=== PATIENT | male | born 1990 | race Caucasian/White ===

== ENCOUNTER 2017-04-08 17:30 | Emergency (ER) | payer OTHER ==
[~2017-04-08] VITALS: Ht 175.3 cm; Wt 153.3 kg
[~2017-04-08 17:30] MED LIST: AMLO10TA PO; HYDR25TA32 PO; LISI40TA4 PO
[2017-04-08 17:51] VITALS: BP 162/109
--- NOTE | 2017-04-08 18:24 | NUR ---
PT TAKEN TO BED 10.
--- NOTE | 2017-04-08 18:25 | NUR ---
26/M BIB FRIEND C/O RECTAL PAIN PAIN AND BLOOD IN STOOL X2 WEEKS.HX HTN. PT STATES NO BLOODY JULISSA TODAY BUT BURNING PAIN TO RACTUM . DENIES N/V/D; SKIN IS PINK/WARM/DRY; AAOX4 WITH EVEN AND STEADY GAIT; LUNGS CLEAR BL; PT DENIES ANY FEVER, CP, SOB, OR COUGH AT THIS TIME; PATIENT STATES PAIN OF 9/10 AT THIS TIME; PATIENT POSITIONED FOR COMFORT. ER MD MADE AWARE OF PT STATUS.
--- NOTE | 2017-04-08 18:57 | NUR ---
Patient being evaluated by DR FISHER at bedside.
--- NOTE | 2017-04-08 19:17 | NUR ---
Pt report given to KAYLEE HAMM. Transfer of care at this time.
--- NOTE | 2017-04-08 19:18 | NUR ---
OBTAINED REPORT FROM AM SHIFT RN, PT IS AAOX4, VSS, PAIN TO RECTAL AREA, PRONE POSITION IN BED AT THIS TIME, SETTING UP FOR PROCEDURE.
[2017-04-08] MEDS: LIDOCAINE/EPI 2% 1:100000 20 ML VIAL INJ ONE (20:00)
[2017-04-08] MEDS: NEOMYCIN/POLYMYXIN/BACITRACIN 0.9 GM/1 PKT TP ONE (20:00)
--- NOTE | 2017-04-08 20:00 | NUR ---
PROCEDURE DONE BY DR. FISHER. EMT ASSISTED AT BEDSIDE.
[2017-04-08 20:15] VITALS: BP 153/111
--- NOTE | 2017-04-08 20:15 | NUR ---
Patient discharged with v/s stable. Written and verbal after care instructions given and explained BY DR. FISHER. Patient alert, oriented and verbalized understanding of instructions. Ambulatory with steady gait. All questions addressed prior to discharge. ID band removed. Patient advised to follow up with PMD. Rx of FLAGYL AND NAPROSYN given. Patient educated on indication of medication including possible reaction and side effects. Opportunity to ask questions provided and answered.
== END 2017-04-08 20:15 | disposition home or self-care (01) ==
LOC: MED 17:30
DX: K61.1 Rectal abscess (principal); I10 Essential (primary) hypertension; Z79.899 Other long term (current) drug therapy
CPT/HCPCS: 10060; 99283; J2001

== ENCOUNTER 2018-08-13 12:22 | Emergency (ER) | payer OTHER ==
[~2018-08-13] VITALS: Ht 177.8 cm; Wt 145.1 kg
[2018-08-13 12:30] VITALS: BP 182/98
--- NOTE | 2018-08-13 12:54 | NUR ---
27 Y MALE BIB FAMILY C/O L FACIAL SWOLLEN AND NUMBNESS OF TOUGUE THIS MORNING. DENIES PAIN, N/V/D. DENIES BLURRY VISION, DIFFICULTY SWALLING OR BREATHING. 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 DIFFICULTY CLOSING L EYE DUE TO SWELLING. PUPILS ELLI. GCS 15. A00X4. BP 182/98. BED IS DOWN, LOCKED, BED RAIL X 1, ERMD TO SEE PT. PMH- HTN
--- NOTE | 2018-08-13 13:00 | NUR ---
DR YBARRA AT BEDSIDE
[2018-08-13 13:19] VITALS: BP 185/97
--- NOTE | 2018-08-13 13:19 | NUR ---
Patient discharged with v/s stable. Written and verbal after care instructions given and explained. Patient alert, oriented and verbalized understanding of instructions. Ambulatory with steady gait. All questions addressed prior to discharge. ID band removed. Patient advised to follow up with PMD. Rx of lisinopril, acyclovir, prednisone given. Patient educated on indication of medication including possible reaction and side effects. Opportunity to ask questions provided and answered.
--- NOTE | 2018-08-13 13:19 | NUR ---
pt discharged with high bp. instructed to take prescribed lisinopril to decrease bp.
== END 2018-08-13 13:19 | disposition home or self-care (01) ==
LOC: MED 12:22
DX: G51.0 Bell's palsy (principal); I10 Essential (primary) hypertension; Z79.899 Other long term (current) drug therapy
CPT/HCPCS: 99281; 99283

== ENCOUNTER 2021-01-25 10:49 | Inpatient (IN) | payer OTHER, SELFPAY ==
[~2021-01-25] VITALS: Ht 175.3 cm; Wt 135.2 kg
[~2021-01-25 10:49] MED LIST changes: -LISI40TA4 PO; +LISI40TA8 PO
[2021-01-25 11:05] VITALS: BP 127/61
--- NOTE | 2021-01-25 11:10 | NUR ---
PT RETURNED TO LOBBY AT THIS TIME.
--- NOTE | 2021-01-25 11:44 | NUR ---
JUDI PRADHAN AT BEDSIDE EVALUATING PT
--- NOTE | 2021-01-25 11:44 | NUR ---
PT AMBULATED TO ER BED 3
[2021-01-25] MEDS ORDERED: KETOROLAC 30 MG/ML VIAL IVP ONE (11:50)
[2021-01-25] MEDS ORDERED: NACL 0.9% 1,000 ML IV ONE ×2 (11:50→14:00)
--- NOTE | 2021-01-25 12:00 | NUR ---
PT C/O HEADACHE AND DIARRHEA SINCE THIS AM. BS CHECKED READ "HIGH" PA MADE AWARE
[2021-01-25 12:24] LABS: BASOPHILS # (AUTO) 0.1 K/uL (0.00-0.22); BASOPHILS % (AUTO) 0.4 % (0.0-2.0); EOSINOPHILS % (AUTO) 0.1 % (0.0-4.0); HEMATOCRIT 51.2 % (36-52); HEMOGLOBIN 17.2 g/dL (12.0-18.0); LYMPHOCYTES # (AUTO) 1.5 K/uL (2.0-11.5); LYMPHOCYTES % (AUTO) 6.3 % (20.5-51.1); MEAN CORPUSCULAR HEMOGLOBIN 30 pg (27-31); MEAN CORPUSCULAR HGB CONC 34 g/dL (33-37); MEAN CORPUSCULAR VOLUME 88.1 fL (80-94); MONOCYTES # (AUTO) 1.1 K/uL (0.8-1.0); MONOCYTES % (AUTO) 4.8 % (1.7-9.3); NEUTROPHILS % (AUTO) 88.4 % (42.2-75.2); PLATELET COUNT (AUTO) 340 K/uL (140-450); RED BLOOD CELL COUNT(AUTO) 5.81 MIL/uL (4.20-6.10); RED CELL DISTRIBUTION WIDTH 13.1 % (11.6-13.7); WHITE BLOOD COUNT (AUTO) 23.7 K/uL (4.8-10.8)
--- NOTE | 2021-01-25 12:27 | NUR ---
IV INSERTED TO RIGHT WRIST #18GUAGE, BLOOD DRAWN AND SENT TO LAB. IV INFUSING PER ORDER.
[2021-01-25 12:59] LABS: ANION GAP 19.8 (8-16); CREATININE 2.6 mg/dL (0.6-1.3); POTASSIUM 5.8 mmol/L (3.5-5.1); TOTAL BILIRUBIN 0.8 mg/dL (0.0-1.0)
[2021-01-25] MEDS ORDERED: INSULIN REGULAR, HUMAN 100 UNIT/ML VIAL IVP ONE (13:25)
[2021-01-25] MEDS ORDERED: ACETAMINOPHEN 325 MG TAB PO PRN (14:55)
[2021-01-25] MEDS ORDERED: ONDANSETRON 4 MG/2 ML VIAL IVP PRN (14:55)
[2021-01-25] MEDS ORDERED: KCL 20 MEQ/WATER INJ PREMIX 200 ML IV PRN (14:55)
[2021-01-25] MEDS ORDERED: POTASSIUM CHLORIDE 10 MEQ TABER PO PRN (14:55)
[2021-01-25] MEDS ORDERED: NACL 0.9% 1,000 ML IV SCH (14:55)
[2021-01-25] MEDS ORDERED: LORazepam 1 MG TAB PO PRN (14:55)
[2021-01-25] MEDS ORDERED: MAG SULF 2000 MG/WATER PREMIX 50 ML IV PRN (14:55)
[2021-01-25] MEDS ORDERED: ZOLPIDEM 5 MG TAB PO PRN (14:55)
[2021-01-25] MEDS ORDERED: HYDROcodone/APAP 5/325 MG 1 TAB TAB PO PRN (14:55)
[2021-01-25] MEDS ORDERED: MAGNESIUM OXIDE 400 MG TAB PO PRN (14:55)
[2021-01-25] MEDS ORDERED: DEXTROSE 50% 50 ML SYR IVP PRN (15:00)
[2021-01-25] MEDS: INSULIN LANTUS 100 UNITS/ML 10 ML VIAL SUBQ SCH (15:20)
[2021-01-25] MEDS: BLOOD GLUCOSE MONITORING 1 DEV DEV FS SCH ×2 (16:55→21:00)
[2021-01-25] MEDS: INSULIN LISPRO SLIDING SCALE 100 UNITS/ML VIAL SUBQ PRN ×2 (17:02→22:21)
[2021-01-25] MEDS ORDERED: METF-430 PO (19:06)
--- NOTE | 2021-01-25 19:12 | NUR ---
REPORT RECEIVED FROM KAYLEE WILDER FOR CONTINUITY OF PT CARE AT THIS TIME.
--- NOTE | 2021-01-25 19:24 | NUR ---
PT LAYING IN BED LOCKED IN LOWEST POSITION W X1 SIDERAIL UP, HOB SLIGHTLY ELEVATED.PT REPORTS HE IS FEELING BETTER, HEADACHE IMPROVEMENT TO 6/10 DENIES ANY DIZZINESS, NAUSEA, OR OTHER SYMPTOMS. PT IS TACHY AT 98HR BUT OTHERWISE VSS. BREATHING EVEN AND UNLABORED. NAD NOTED, WILL CONTINUE TO MONITOR. PMH:DIABETED, HTN NKA
--- NOTE | 2021-01-25 19:24 | NUR ---
30 YO/M BIB SELF W C/O PRESSURE STONER NOW AT 6/10 BEGGINGIN AT 0700 THIS MORNING, NON RAD, + X1 EPISODE OF WATERY BOWEL MOVEMENT AT 0100 THIS MORNING RELATES IT TO EATING SPICY FOOD THE NIGHT BEFORE. PT DENIES ANY BLURRY VISION, N/V, BLOOD IN STOOL, ABD PAIN OR OTHER SYMPTOMS. PER PT PAIN IS IMPROVING AT THIS TIME. PMH:HTN, DIABETES NKA
--- NOTE | 2021-01-25 19:57 | NUR ---
Pt report given to KAYLEE SINGH. Transfer of care at this time.
--- NOTE | 2021-01-25 20:18 | NUR ---
Patient will be admitted to care of DR. GALINDO. Admited to TELEMETRY. Will go to [id number]. Belongings list completed. Report to KAYLEE SINGH.
--- NOTE | 2021-01-25 21:00 | NUR ---
BLOOD SUGAR CHECKED -292. HUMALOG SLIDING SCALE COVERAGE ADMINISTERED. PATIENT IS ASYMPTOMATIC.
[2021-01-25 21:30] VITALS: BP 118/65
--- NOTE | 2021-01-25 21:30 | NUR ---
Admitted from ER TO TELEMETRY UNIT , with chief complaint of SEVERE HEADACHE, AWAKE, A/OX4. 30 years old, Male, Cooperative. RESPIRATION EVEN AND UNLABORED. LUNGS CLEAR ON BILATERAL AUSCULTATION. ABDOMEN SOFT, NON-TENDER WITH POSITIVE BOWEL SOUNDS ON ALL QUADRANTS. BLOOD SUGAR IN ER WAS 461, WAS MEDICATED WITH LANTUS AND HUMALOG. WILL CONTINUE TO MONITOR BLOOD SUGAR. PATIENT IS INDEPENDENT, AMBULATORY TO THE BR. HEAD TO TOE ASSESSMENT DONE WITH CHARGE NURSE TUNDE. SKIN IS INTACT. DENIES PAIN 0/10. SINUS RHYTHM ON TELE MONITORING. oriented to call light, bed, phone,television, bathroom, smoking policy,visiting hours, procedures, ID bracelet on. Belongings list checked.
[2021-01-26] VITALS: BP_SYST 116; BP_SYST 64; BP_DIAS 100; BP_DIAS 60
--- NOTE | 2021-01-26 01:06 | NUR ---
Patient's Plan of Care was discussed and reviewed with FIRE TENDER: ELIEZER SINGH
--- NOTE | 2021-01-26 02:00 | NUR ---
SLEEPING COMFORTABLY IN BED,. RESPIRATION EVEN AND UNLABORED. CALL LIGHT IN REACH.
[2021-01-26 04:00] VITALS: BP 120/65
--- NOTE | 2021-01-26 04:15 | NUR ---
SR/ST ON TELE MONITORING, AT TIMES WITH FREQUENT PVCs. PATIENT IS ASYMPTOMATIC.
[2021-01-26 06:15] LABS: BASOPHILS # (AUTO) 0.1 K/uL (0.00-0.22); BASOPHILS % (AUTO) 0.6 % (0.0-2.0); EOSINOPHILS # (AUTO) 0.5 K/uL (0-0.4); EOSINOPHILS % (AUTO) 2.7 % (0.0-4.0); HEMATOCRIT 45.1 % (36-52); HEMOGLOBIN 15.4 g/dL (12.0-18.0); LYMPHOCYTES # (AUTO) 2.4 K/uL (2.0-11.5); LYMPHOCYTES % (AUTO) 12.5 % (20.5-51.1); MEAN CORPUSCULAR HEMOGLOBIN 30 pg (27-31); MEAN CORPUSCULAR HGB CONC 34 g/dL (33-37); MEAN CORPUSCULAR VOLUME 87.3 fL (80-94); MONOCYTES # (AUTO) 0.9 K/uL (0.8-1.0); MONOCYTES % (AUTO) 4.6 % (1.7-9.3); NEUTROPHILS % (AUTO) 79.6 % (42.2-75.2); PLATELET COUNT (AUTO) 258 K/uL (140-450); RED BLOOD CELL COUNT(AUTO) 5.17 MIL/uL (4.20-6.10); RED CELL DISTRIBUTION WIDTH 13.1 % (11.6-13.7); WHITE BLOOD COUNT (AUTO) 18.9 K/uL (4.8-10.8)
[2021-01-26] MEDS ORDERED: INSULIN LISPRO 100 UNITS/ML VIAL SUBQ ONE (07:10)
[2021-01-26] MEDS: BLOOD GLUCOSE MONITORING 1 DEV DEV FS SCH ×4 (07:12→21:03)
[2021-01-26 07:15] LABS: ANION GAP 17.1 (8-16); CHOL/HDL RATIO 6.2 (1-4.5); CREATININE 2.1 mg/dL (0.6-1.3); MAGNESIUM 1.6 mg/dL (1.8-2.4); PHOSPHORUS 4.5 mg/dL (2.5-4.9); POTASSIUM 5.1 mmol/L (3.5-5.1); TOTAL BILIRUBIN 0.8 mg/dL (0.0-1.0)
--- NOTE | 2021-01-26 07:21 | NUR ---
ADMINISTERED 21 UNITS HUMALOG SUB-Q X 1 DOSE PER MD ORDER FOR BS 422. PATIENT IS ASYMPTOMATIC. CONDITION REMAIN STABLE. ENDORSED TO AM SHIFT NURSE FOR CONTINUITY OF CARE.
--- NOTE | 2021-01-26 07:40 | NUR ---
RECEIVED REPORT FROM SCREW MACHINE OPERATOR SINGLE SPINDLE NURSE FOR CONTINUITY OF CARE, POC DISCUSSED. PT IS ASLEEP ON LEFT SIDE WITH CHEST RISING AND FALLING EVEN AND UNLABORED. SCREW MACHINE OPERATOR SINGLE SPINDLE REPORTED BLOOD GLUCOSE OF 422, MADE AWARE. INSULIN COVERAGE WAS PROVIDED BY SCREW MACHINE OPERATOR SINGLE SPINDLE NURSE. PT HAS A RIGHT WRIST 18G SALINE LOCK. ALL SAFETY MEASURES IN PLACE, CALL LIGHT WITHIN REACH. WILL CONTINUE TO MONITOR.
[2021-01-26 08:00] VITALS: BP 126/73
--- NOTE | 2021-01-26 08:19 | NUR ---
PATIENT HAS BEEN SCREENED AND CATEGORIZED MODERATE NUTRITION RISK. PATIENT WILL BE SEEN WITHIN 3-5 DAYS OF ADMISSION. 01/26/21 01/30/[address]
[2021-01-26] MEDS: ENOXAPARIN 40 MG/0.4 ML SYR SUBQ SCH (08:36)
[2021-01-26] MEDS: INSULIN LANTUS 100 UNITS/ML 10 ML VIAL SUBQ SCH (08:38)
[2021-01-26] MEDS: amLODIPine 5 MG TAB PO SCH (08:39)
[2021-01-26] MEDS: DOCUSATE SODIUM 100 MG GELCAP PO SCH (08:40)
--- NOTE | 2021-01-26 08:48 | NUR ---
CHERYL MEDICATION ADMINISTERED PER MD ORDER, PT TOLERATED ADMINISTRATION. PT EDUCATION PROVIDED AND PT NODDED IN UNDERSTANDING. BREAKFAST AT BEDSIDE. ALL NEEDS HAVE BEEN REPORTED TO BE MET. ALL SAFETY MEASURES IN PLACE, CALL LIGHT WITHIN REACH. WILL CONTINUE TO MONITOR.
[2021-01-26] MEDS: INSULIN LISPRO SLIDING SCALE 100 UNITS/ML VIAL SUBQ PRN ×3 (11:52→21:05)
--- NOTE | 2021-01-26 11:55 | NUR ---
PT BLOOD GLUCOSE OF 397, 10 UNITS OF INSULIN ADMINISTERED PER MD ORDER. PT TOLERATED ADMINISTRATION.
[2021-01-26 12:00] VITALS: BP 129/83
--- NOTE | 2021-01-26 13:01 | NUR ---
PRN MAGNESIUM ADMINISTERED FOR MAG LEVEL OF 1.6
--- NOTE | 2021-01-26 15:04 | NUR ---
CALLED [facility] FOR [employer] [facility] FOR PT, STATED THEY WILL COME TOMORROW 01/27/21 BEFORE NOON FOR EDUCATION.
[2021-01-26] MEDS: NACL 0.9% 1,000 ML IV SCH (15:31)
--- NOTE | 2021-01-26 15:48 | NUR ---
RENAL ULTRASOUND HAS BEEN TAKEN.
[2021-01-26 16:00] VITALS: BP 123/81
[2021-01-26] MEDS: INSULIN LISPRO 100 UNITS/ML VIAL SUBQ SCH (16:39)
--- NOTE | 2021-01-26 17:00 | NUR ---
BLOOD GLUCOSE OF 316; 8 UNITS PER SLIDING SCALE ADMINISTERED AND 5 UNITS PER MD ORDER ADMINISTERED. PT TOLERATED ADMINISTRATION. PT HAS BEEN EDUCATED ON DIABETES AND S/S TO MONITOR FOR. EDUCATED ON SEVERITY OF UNCONTROLLED BLOOD GLUCOSE. PT VERBALIZED UNDERSTANDING BUT REINFORCEMENT NEEDED. IV FLUIDS HAVE BEEN STARTED, IV IS PATENT AND INTACT. ALL SAFETY MEASURES IN PLACE, CALL LIGHT WITHIN REACH. WILL CONTINUE TO MONITOR.
--- NOTE | 2021-01-26 18:04 | NUR ---
PT IS STABLE IN BED WITH NO ACUTE S/S OF DISTRESS. ALL SAFETY MEASURES IN PLACE, CALL LIGHT WITHIN REACH. WILL CONTINUE TO MONITOR.
--- NOTE | 2021-01-26 18:50 | NUR ---
PT IS STABLE AND ALL NEEDS HAVE BEEN MET THROUGHOUT SHIFT. PT WILL BE ENDORSED TO KOSHER DIETARY SERVICE MANAGER NURSE.
--- NOTE | 2021-01-26 19:15 | NUR ---
RECD. RESPORT FROM AM NURSE. PATIENT RESTING IN BED, AWAKE, A/OX4. OBESE. RESPIRATION EVEN AND UNLABORED. IV OF NS INFUSING AT 80 ML/HR, LEFT WRIST G18. ABLE TO AMBULATE BY HIMSELF TO THE BR. MEDICATIONS FOR THE NIGHT DISCUSSED WITH PATIENT. VERBALIZED UNDERSTANDING. DENIES PAIN 0/10.
[2021-01-26 20:00] VITALS: BP 133/77
--- NOTE | 2021-01-26 20:00 | NUR ---
Patient's Plan of Care was discussed and reviewed with ELECTRICAL UNIT REBUILDER: SAMANTHA MARTINS
--- NOTE | 2021-01-26 21:03 | NUR ---
BLOOD SUGAR CHECKED - 339, HUMALOG SLIDING SCALE COVERED ADMINISTERED PER MD ORDER. SNACK GIVEN FOR THE NIGHT. DIABETIC HEALTH TEACHINGS GIVEN ON THE IMPORTANCE OF DIET AND EXERCISE TO CONTROL DM. JUST NODS IN AGREEMENT.
--- NOTE | 2021-01-26 23:00 | NUR ---
COMPLAINT OF PAIN IN THE IV SITE. CHECKED IV SITE, STILL FLUSHING WELL.
[2021-01-27] VITALS: BP 127/72
--- NOTE | 2021-01-27 01:30 | NUR ---
RESTING IN BED COMFORTABLY SLEEPING. RESPIRATION EVEN AND UNLABORED. CALL LIGHT IN REACH.
--- NOTE | 2021-01-27 03:30 | NUR ---
IV INFILTRATED, WILL INSERT NEW IV LINE.
[2021-01-27] MEDS: NACL 0.9% 1,000 ML IV SCH ×2 (03:35→13:10)
[2021-01-27 04:00] VITALS: BP 111/64
--- NOTE | 2021-01-27 05:30 | NUR ---
NEW IV LINE INSERTED BY KAYLEE SETHI AT THE LEFT HAND G20.
[2021-01-27 06:21] LABS: BASOPHILS # (AUTO) 0.1 K/uL (0.00-0.22); BASOPHILS % (AUTO) 0.7 % (0.0-2.0); EOSINOPHILS # (AUTO) 0.5 K/uL (0-0.4); HEMATOCRIT 45.7 % (36-52); HEMOGLOBIN 15.7 g/dL (12.0-18.0); LYMPHOCYTES # (AUTO) 2.8 K/uL (2.0-11.5); LYMPHOCYTES % (AUTO) 22.3 % (20.5-51.1); MEAN CORPUSCULAR HEMOGLOBIN 30 pg (27-31); MEAN CORPUSCULAR HGB CONC 34 g/dL (33-37); MONOCYTES # (AUTO) 0.9 K/uL (0.8-1.0); MONOCYTES % (AUTO) 7.3 % (1.7-9.3); NEUTROPHILS # (AUTO) 8.4 K/uL (1.8-7.7); NEUTROPHILS % (AUTO) 65.7 % (42.2-75.2); PLATELET COUNT (AUTO) 244 K/uL (140-450); RED BLOOD CELL COUNT(AUTO) 5.25 MIL/uL (4.20-6.10); RED CELL DISTRIBUTION WIDTH 13.1 % (11.6-13.7); WHITE BLOOD COUNT (AUTO) 12.7 K/uL (4.8-10.8)
[2021-01-27 06:35] LABS: ANION GAP 11.9 (8-16); CARBON DIOXIDE 24.2 mmol/L (21-32); CREATININE 1.6 mg/dL (0.6-1.3); MAGNESIUM 1.8 mg/dL (1.8-2.4); PHOSPHORUS 3.9 mg/dL (2.5-4.9); POTASSIUM 4.1 mmol/L (3.5-5.1); TOTAL BILIRUBIN 0.7 mg/dL (0.0-1.0)
[2021-01-27] MEDS: INSULIN LISPRO 100 UNITS/ML VIAL SUBQ SCH ×2 (07:07→12:01)
[2021-01-27] MEDS: INSULIN LISPRO SLIDING SCALE 100 UNITS/ML VIAL SUBQ PRN ×2 (07:08→12:01)
--- NOTE | 2021-01-27 07:20 | NUR ---
CONDITION REMAIN STABLE. ENDORSED TO AM SHIFT NURSE FOR CONTINUITY OF CARE.
--- NOTE | 2021-01-27 07:33 | NUR ---
RECEIVED BEDSIDE REPORT FROM FIELD CONSULTANT RN. PATIENT RESTING IN BED EYES CLOSED.
[2021-01-27] MEDS: BLOOD GLUCOSE MONITORING 1 DEV DEV FS SCH ×2 (07:46→12:00)
[2021-01-27 08:00] VITALS: BP 114/82
[2021-01-27] MEDS: amLODIPine 5 MG TAB PO SCH (08:33)
[2021-01-27] MEDS: DOCUSATE SODIUM 100 MG GELCAP PO SCH (08:33)
[2021-01-27] MEDS: ENOXAPARIN 40 MG/0.4 ML SYR SUBQ SCH (08:35)
[2021-01-27] MEDS: INSULIN LANTUS 100 UNITS/ML 10 ML VIAL SUBQ SCH (08:36)
--- NOTE | 2021-01-27 08:47 | NUR ---
MEDICATIONS GIVEN PER MD ORDER. PT EDUCATED AND VERBALIZED UNDERSTANDING , PT ASSISTED WITH MEAL TRAY SET UP . PT ASSESSED NON PITTING ON BOTH LEGS, SI S2 PRESENT LUNGS CLEAR BOWEL SOUNDS PRESENT NON TENDER DISTENDED ABDOMEN NEURO UNREMARKABLE. ALL SAFETY MEASURES UN PLACE. CALL LIGHT WITHIN REACH ALL PERSONAL BELONGIGNS WITHIN REACH , NON SLIP SOCKS ON
--- NOTE | 2021-01-27 11:07 | NUR ---
PATIENT AMBULATED TO RESTROOM TOLERATED WELL DENIES SHORTNESS OF BREATH OR FATIGUE. ALL SAFETY MEASURES ARE IN PLACE.
[2021-01-27 12:00] VITALS: BP 129/72
--- NOTE | 2021-01-27 13:19 | NUR ---
PT REQUEST ICE WATER , ICE WATER PROVIDED. PTS IV BEEPING , PT EDUCATED ON TO AVOID KINKS . ALL SAFETY MEASURES IN PLACE
[2021-01-27] MEDS ORDERED: INSU100I7 SUBQ (14:45)
--- NOTE | 2021-01-27 15:02 | NUR ---
DC PLANNING NIKA CALLED PATIENT'S PCP OFFICE AT AND SPOKE TO RAKAN TO SCHEDULED A FOLLOW UP APPOINTMENT FOR PATIENT AFTER HIS DC FROM [facility]. RAKAN SCHEDULED PATIENT'S FOLLOW UP APPOINTMENT FOR Monday02/01/2021 AT 11:00AM WITH MD AMY PARRA. NIKA THANKED HER AND ENDED THE CALL. NIKA MET WITH PATIENT AT BEDSIDE AND PROVIDED HIM WITH HIS APPOINTMENT INFORMATION SCHEDULED FOR 02/01/2021. NIKA HANDED APPOINTMENT NOTE TO PATIENT WITH ADDRESS, DATE AND TIME OF APPOINTMENT. PATIENT WAS AWAKE AND ALERT AND THANKED THESE PRACTICE ASSISTANT FOR THE INFORMATION. Addendum: 01/27/21 at 1650 by Angela Scott CM NIKA CONTACTED [facility] VIA TELEPHONIC CALL TO SPOKE TO [facility] # [id number] ABOUT PATIENT'S NEED FOR REFERRAL TO ENDOCRINOLOGY. PER [facility] FORM FOUND ON [facility] PORT[facility] NEEDED TO BE COMPLETED AND FAX TO [facility]. NIKA PRINTED FORM, COMPLETED AND FAXED TO [facility]. WITH COMPLETED CONFIRMATION AT ABOUT 16:43.
--- NOTE | 2021-01-27 15:08 | NUR ---
DIABETES EDUCATION PERFORMED. PATIENT EDUCATED WITH APPLE. TEACH BACK METHOD PERFORMED. PATIENT STATES HE DOES THIS AT HOME ALREADY AND ALREADY HAS ENOUGH PRACTICE. pT WAS ABLE TO SIMULATE DRAWING 5 UNITS, 8 UNITS 15 UNITS AND INJECTING IT TO APPLE. PT ADVISED TO ROTATE SITE , USE ALCOHOL SWABS TO CLEAN SITE BEFORE SUB Q INJECTION . PT VERBALIZED UNDERSTANDING . PT STATED HE ALSO GIVES INSULIN TO HIS FATHER. WHO IS ALSO DIABETIC . 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 SISTER ON PHONE DURING EDUCATION AWARE TO STOP METFORMIN AND NAPROXEN ALL SAFETY MEASURES IN PLACE. PT
--- NOTE | 2021-01-27 16:31 | NUR ---
PATIENT DISCHARGE INSTRUCTIONS COMPLETE. PT EDUCATED ON OXYGEN USE, EDUCATED TO FLLLOW UP WITH PRIMARY CARE AND TAKE MEDICATION PRESCRIBED. PT EDUCATED ON DIABETES RISKS, MORBIDITY AND MORTALITY . PATIENT ADVISED TO LOSE WEIGHT EXERCISE 150 MIN / WEEK FOLLOW A [facility] DIET PLAN. PATIENT VERBALIZED UNDERSTANDING FOR CONTINUITY OF CARE. TELE MONITOR REMOVED AND RETURNED TO TELE, IV CANULA REMOVED, PATIENT GATHERED ALL BELONGINGS , ALL SAFETY MEASURES IN PLACE. PATIENT DENIES ANY QUESTIONS OR CONCERNS AT THIS TIME
== END 2021-01-27 17:32 | disposition home or self-care (01) | DRG 469 ==
LOC: MED 10:49 → MTU 14:55
PROVIDERS: ADMIT Hospitalist; ATTEND Hospitalist
DX: N17.0 Acute kidney failure with tubular necrosis (principal); E11.00 Type 2 diabetes mellitus with hyperosmolarity without nonketotic hyperglycemic-hyperosmolar coma (NKHHC); E87.2 Acidosis; E11.21 Type 2 diabetes mellitus with diabetic nephropathy; E11.65 Type 2 diabetes mellitus with hyperglycemia; E78.1 Pure hyperglyceridemia; E66.9 Obesity, unspecified; E78.5 Hyperlipidemia, unspecified; R51.9 Headache, unspecified; E86.9 Volume depletion, unspecified; E86.0 Dehydration; E87.5 Hyperkalemia; I10 Essential (primary) hypertension; Z20.822 Contact with and (suspected) exposure to COVID-19; T38.3X6A Underdosing of insulin and oral hypoglycemic [antidiabetic] drugs, initial encounter; Y92.89 Other specified places as the place of occurrence of the external cause; Z79.899 Other long term (current) drug therapy; Z71.6 Tobacco abuse counseling; Z68.41 Body mass index [BMI] 40.0-44.9, adult
CPT/HCPCS: 36415; 76770; 80053; 82948; 83036; 83735; 83930; 84100; 85025; 87081; 93005; 96361; 96374; 96375; 99291; J1650; J1815; J1885; Q0092

== ENCOUNTER 2023-03-26 10:44 | Emergency (ER) | payer OTHER ==
[~2023-03-26] VITALS: Ht 177.8 cm; Wt 138.3 kg
[~2023-03-26 10:44] MED LIST changes: +INSU100I7 SUBQ; +METF-430 PO
[2023-03-26 11:03] VITALS: BP 137/90; PULSE 106; RESP 17; TEMP 97.6; O2SAT 98
[2023-03-26 11:58] LABS: HEMATOCRIT 50.5 % (36-52); HEMOGLOBIN 17.3 g/dL (12.0-18.0); MEAN CORPUSCULAR HEMOGLOBIN 31 pg (27-31); MEAN CORPUSCULAR HGB CONC 34 g/dL (33-37); MEAN CORPUSCULAR VOLUME 89.9 fL (80-94); PLATELET COUNT (AUTO) 238 K/uL (140-450); RED BLOOD CELL COUNT(AUTO) 5.61 MIL/uL (4.20-6.10); RED CELL DISTRIBUTION WIDTH 12.7 % (11.6-13.7); WHITE BLOOD COUNT (AUTO) 17.8 K/uL (4.8-10.8)
[2023-03-26 12:11] LABS: CALCIUM 9.2 mg/dL (8.5-10.1); CARBON DIOXIDE 22.6 mmol/L (21-32); CREATININE 2.1 mg/dL (0.6-1.3); POTASSIUM 4.6 mmol/L (3.5-5.1)
[2023-03-26 12:15] LABS: BASOPHILS % (MANUAL) 0 % (0-2); EOSINOPHILS % (MANUAL) 0 % (0-4); LYMPHOCYTES % (MANUAL) 17 % (20-46); MONOCYTES % (MANUAL) 7 % (5-12); PLATELET ESTIMATE ADEQUATE
[2023-03-26] MEDS ORDERED: diphenhydrAMINE 50 MG/ML VIAL IVP ONE (12:25)
[2023-03-26] MEDS ORDERED: KETOROLAC 30 MG/ML VIAL IVP ONE (12:25)
[2023-03-26] MEDS ORDERED: METOCLOPRAMIDE 10 MG/2 ML INJ VIAL IVP ONE (12:25)
[2023-03-26] MEDS ORDERED: NACL 0.9% 1,000 ML IV ONE (12:25)
[2023-03-26] MEDS ORDERED: cefTRIAXone 1,000 MG VIAL ONE (12:56)
[2023-03-26 14:15] LABS: FLU A ANTIGEN negative (NEGATIVE); FLU B ANTIGEN NEGATIVE (NEGATIVE)
[2023-03-26] MEDS ORDERED: INSULIN REGULAR, HUMAN 100 UNIT/ML VIAL SUBQ ONE (14:35)
[2023-03-26] MEDS ORDERED: PROP1DRO21 OP (14:39)
[2023-03-26] MEDS ORDERED: MINE3.5O2 OP (14:39)
[2023-03-26] MEDS ORDERED: ACYC400T14 PO (14:39)
[2023-03-26] MEDS ORDERED: PRED20TA5 PO (14:39)
[2023-03-26 14:51] VITALS: BP 137/90; PULSE 78; RESP 17; TEMP 97.6; O2SAT 98
== END 2023-03-26 14:54 | disposition home or self-care (01) ==
LOC: MED 10:44
DX: G51.0 Bell's palsy (principal); Z20.822 Contact with and (suspected) exposure to COVID-19; E11.9 Type 2 diabetes mellitus without complications; I10 Essential (primary) hypertension; Z79.4 Long term (current) use of insulin; Z79.899 Other long term (current) drug therapy
CPT/HCPCS: 36415; 36600; 70450; 80048; 82803; 82948; 85025; 87426; 87804; 96361; 96365; 96372; 96375; 99285; J0696; J1200; J1815; J1885; J2765; J7030

== ENCOUNTER 2023-11-28 11:23 | Emergency (ER) | payer OTHER ==
[~2023-11-28] VITALS: Ht 177.8 cm; Wt 138.3 kg
[~2023-11-28 11:23] MED LIST changes: +ACYC400T14 PO; +MINE3.5O2 OP; +PRED20TA5 PO; +PROP1DRO21 OP
[2023-11-28 11:39] VITALS: BP 120/74; PULSE 98; RESP 22; TEMP 98.5; O2SAT 98
[2023-11-28] MEDS ORDERED: SPIR25TA20 PO (12:13)
[2023-11-28] MEDS ORDERED: EMPA10TA PO (12:13)
[2023-11-28] MEDS ORDERED: LIP80 PO (12:13)
[2023-11-28] MEDS ORDERED: LISI40TA8 PO (12:13)
[2023-11-28 12:45] LABS: BASOPHILS % (AUTO) 0.5 % (0.0-2.0); EOSINOPHILS # (AUTO) 0.1 K/uL (0-0.4); EOSINOPHILS % (AUTO) 0.7 % (0.0-4.0); HEMATOCRIT 49.3 % (36-52); HEMOGLOBIN 16.5 g/dL (12.0-18.0); LYMPHOCYTES # (AUTO) 1.8 K/uL (2.0-11.5); LYMPHOCYTES % (AUTO) 16.5 % (20.5-51.1); MEAN CORPUSCULAR HEMOGLOBIN 30 pg (27-31); MEAN CORPUSCULAR HGB CONC 33 g/dL (33-37); MEAN CORPUSCULAR VOLUME 89.2 fL (80-94); MONOCYTES # (AUTO) 0.7 K/uL (0.8-1.0); MONOCYTES % (AUTO) 6.1 % (1.7-9.3); NEUTROPHILS # (AUTO) 8.2 K/uL (1.8-7.7); NEUTROPHILS % (AUTO) 76.2 % (42.2-75.2); PLATELET COUNT (AUTO) 235 K/uL (140-450); RED BLOOD CELL COUNT(AUTO) 5.53 MIL/uL (4.20-6.10); RED CELL DISTRIBUTION WIDTH 13.9 % (11.6-13.7); WHITE BLOOD COUNT (AUTO) 10.7 K/uL (4.8-10.8)
[2023-11-28 12:55] LABS: ANION GAP 14.7 (8-16); CALCIUM 9.3 mg/dL (8.5-10.1); POTASSIUM 4.7 mmol/L (3.5-5.1)
[2023-11-28 12:59] LABS: ALBUMIN 3.8 g/dL (3.4-5.0); APPEARANCE,URINE CLEAR (CLEAR); BILIRUBIN,DIRECT 0.1 mg/dL (0.0-0.3); BILIRUBIN,URINE NEGATIVE (NEGATIVE); BLOOD, URINE NEGATIVE (NEGATIVE); COLOR,URINE YELLOW (YELLOW); LEUKOCYTE ESTERASE ,URINE 1+ (NEGATIVE); NITRITE, URINE NEGATIVE (NEGATIVE); PROTEIN,URINE 1+ (NEGATIVE); TOTAL BILIRUBIN 0.5 mg/dL (0.0-1.0); TOTAL PROTEIN, SERUM 8.2 g/dL (6.4-8.2); UGLUCOSE 3+ (NEGATIVE); UROBILINOGEN,URINE 0.2 EU/dL (0.2 - 1)
[2023-11-28 13:08] LABS: RBC,URINE 0-5 /HPF (0-5)
[2023-11-28 13:09] LABS: BACTERIA,URINE 2+ /HPF (None Seen); MUCUS,URINE 2+ /LPF (None Seen); SQUAMOUS EPITHELIAL CELL,UR 4-10 (MOD) /LPF (0-3 (FEW)); WBC,URINE 0-5 /HPF (0-5)
[2023-11-28] MEDS: ONDANSETRON 4 MG/2 ML VIAL IVP ONE (14:11)
[2023-11-28] MEDS: KETOROLAC 30 MG/ML VIAL IVP ONE (14:11)
[2023-11-28] MEDS: NACL 0.9% 1,000 ML IV ONE (14:16)
[2023-11-28] MEDS ORDERED: ONDA-188 PO (16:06)
[2023-11-28 16:15] VITALS: BP 103/49; PULSE 71; RESP 16; TEMP 98.5; O2SAT 97
== END 2023-11-28 16:15 | disposition home or self-care (01) ==
LOC: MED 11:23
DX: K52.9 Noninfective gastroenteritis and colitis, unspecified (principal); E11.9 Type 2 diabetes mellitus without complications; I10 Essential (primary) hypertension; E78.5 Hyperlipidemia, unspecified; Z79.899 Other long term (current) drug therapy
CPT/HCPCS: 36415; 74176; 80048; 80076; 81001; 82948; 83690; 85025; 87086; 96361; 96374; 96375; 99285; J1885; J2405; J7030